=== PATIENT | male | born 1995 | race Two or more races ===

== ENCOUNTER 2018-08-19 11:44 | Emergency (ER) | payer OTHER ==
[~2018-08-19] VITALS: Ht 180.3 cm; Wt 70.3 kg
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
--- NOTE | 2018-08-19 12:46 | Diagnostic Imaging Report ---
Indication: Lumbar pain Technique: 3 views of the lumbar spine Comparison: None Findings: There is mild lumbar levoscoliotic deformity, possibly artifact of positioning. Bony alignment is otherwise normal. Vertebral body heights are preserved. Disc spaces are preserved. Impression: No acute process
[2018-08-19] MEDS ORDERED: ROBAXIN-750750 MG PO (13:06)
[2018-08-19] MEDS ORDERED: IBUPROFEN600 MG ORAL (13:06)
[2018-08-19 13:26] VITALS: BP 122/71
== END 2018-08-19 13:28 | disposition home or self-care (01) ==
LOC: EMR 12:21
DX: S39.012A Strain of muscle, fascia and tendon of lower back, initial encounter (principal); S16.1XXA Strain of muscle, fascia and tendon at neck level, initial encounter; V43.52XA Car driver injured in collision with other type car in traffic accident, initial encounter; Y92.410 Unspecified street and highway as the place of occurrence of the external cause
CPT/HCPCS: 72020; 99283